=== PATIENT | male | born 1950 | race Caucasian/White ===

== ENCOUNTER 2021-03-19 12:41 | Inpatient (IN) | payer MEDICARE ==
[~2021-03-19 12:41] MED LIST: Iopamidol-370 76% 500 ML 1 ML ONE
[2021-03-19 13:01] LABS: #Eosinphils 0.1 thou/uL (0.0-0.7); #Lymphocytes 2.6 thou/uL (1.20-3.40); #Monocytes 1.3 thou/uL (0.11-0.59); #Neutrophils 13.8 thou/uL (1.40-6.50); %Basophils 0.1 % (0.0-1.0); %Eosinophils 0.5 % (0.0-10.0); %Lymphocytes 14.4 % (21.0-51.0); %Monocytes 7.3 % (0.0-10.0); %Neutrophils 77.7 % (42.0-75.0); Hemoglobin 16.8 g/dL (14.0-18.0); Mean Corpuscular HGB CONC 34.3 g/dL (32.0-36.0); Mean Corpuscular Hemoglobin 30.4 pg (27.0-31.0); Mean Corpuscular Volume 88.5 fL (78.0-98.0); Mean Platelet Volume 7.5 fL (7.4-10.4); Platelet Count 270 thou/uL (130-400); RBC Distribution Width 12.2 % (11.5-14.5); Red Blood Cell (RBC) Count 5.52 mill/uL (4.70-6.10); White Blood Cell (WBC) Count 17.8 thou/uL (4.8-10.8)
[2021-03-19 13:12] LABS: PTT 22.6 sec (22.9-36.1)
[2021-03-19 13:17] LABS: ALT (SGPT) 57 U/L (8-55); AST (SGOT) 21 U/L (5-34); Alkaline Phosphatase 104 U/L (40-110); Anion Gap 14 mmol/L (10-20); BUN (Urea Nitrogen) 32 mg/dL (8.4-25.7); Bilirubin, Total 0.6 mg/dL (0.2-1.2); CK (CPK) 38 U/L (30-200); Calc. Creatinine Clearance 0 mL/min (70-130); Calcium 9.3 mg/dL (7.8-10.44); Carbon Dioxide 23 mmol/L (23-31); Chloride 104 mmol/L (98-107); Globulin 3.5 g/dL (2.4-3.5); Glucose 106 mg/dL (80-115); Protein, Total 7.5 g/dL (5.8-8.1); Sodium 137 mmol/L (136-145)
[2021-03-19] MEDS ORDERED: Aspirin Chewable 81 MG TAB ONE (15:37)
[2021-03-19] MEDS ORDERED: Senokot S 8.6-50 MG TAB PO PRN (17:16)
[2021-03-19] MEDS ORDERED: Ondansetron PF 4 MG/2 ML Vial IVP PRN (17:16)
[2021-03-19] MEDS ORDERED: Calcium Carbonate 500 MG ChewTAB PO PRN (17:16)
[2021-03-19] MEDS ORDERED: Acetaminophen 325 MG TAB PO PRN (17:16)
[2021-03-19 19:40] VITALS: BMI 31.6
[2021-03-19] MEDS: hydrALAZINE 20 MG/ML VIAL SLOW IVP PRN (20:10)
[2021-03-19] MEDS: Tamsulosin HCl 0.4 MG CAP PO SCH (21:48)
[2021-03-19] MEDS: Atorvastatin Calcium 40 MG TAB PO SCH (21:48)
[2021-03-19 23:16] LABS: SARS-CoV-2 NAA Rapid Test Not Detected (NotDetected)
[2021-03-20] MEDS ORDERED: hydrOXYzine 10 MG TAB PO SCH (03:00)
[2021-03-20 06:24] LABS: Hemoglobin 15.7 g/dL (14.0-18.0); Lymphocytes 32 % (21-51); MDiff Complete? YES; Mean Corpuscular HGB CONC 34.8 g/dL (32.0-36.0); Mean Corpuscular Hemoglobin 30.7 pg (27.0-31.0); Mean Corpuscular Volume 88.3 fL (78.0-98.0); Mean Platelet Volume 7.9 fL (7.4-10.4); Monocytes 13 % (0-10); Neutrophil 54 % (42-75); Platelet Count 214 thou/uL (130-400); Platelet Morphology Comment Appears Adequate; RBC Distribution Width 12.3 % (11.5-14.5); RBC Morphology Normal; Reactive Lymphocytes 1 % (0-10); White Blood Cell (WBC) Count 11.6 thou/uL (4.8-10.8)
[2021-03-20 06:26] LABS: ALT (SGPT) 62 U/L (8-55); AST (SGOT) 24 U/L (5-34); Albumin 3.7 g/dL (3.4-4.8); Alkaline Phosphatase 93 U/L (40-110); Anion Gap 12 mmol/L (10-20); BUN (Urea Nitrogen) 27 mg/dL (8.4-25.7); Bilirubin, Total 0.6 mg/dL (0.2-1.2); Calc. Creatinine Clearance 96 mL/min (70-130); Calcium 8.8 mg/dL (7.8-10.44); Carbon Dioxide 25 mmol/L (23-31); Cardiac Risk 2.7 (Less than 4.5); Chloride 105 mmol/L (98-107); Cholesterol 146 mg/dl (< 200 Desired); Globulin 2.5 g/dL (2.4-3.5); Glucose 105 mg/dL (80-115); HDL Cholesterol 54 mg/dL (>60 Neg Risk); LDL Cholesterol, Calculated 70 mg/dL; Potassium 3.9 mmol/L (3.5-5.1); Protein, Total 6.2 g/dL (5.8-8.1); Sodium 138 mmol/L (136-145); Triglycerides 112 mg/dL (Less than 150)
[2021-03-20] MEDS ORDERED: predniSONE 20 MG TAB PO SCH (08:00)
[2021-03-20] MEDS ORDERED: Non-Formulary Item 1 EACH (Azelastine Hcl [Azelastine Hcl 0.15% Nasal Spray] 205.5 MCG/0. NASAL PRN (08:19)
[2021-03-20] MEDS ORDERED: Azelastine 137 MCG/Spray 30 ML NS PRN (08:28)
[2021-03-20] MEDS: hydrALAZINE 20 MG/ML VIAL SLOW IVP PRN (08:50)
[2021-03-20] MEDS: Aspirin 81 mg Enteric Coated Tablet PO SCH (08:50)
[2021-03-20] MEDS: Finasteride 5 MG TAB PO SCH (08:51)
[2021-03-20] MEDS: Fluticasone Propionate Nasal Spray 16 gm Bottle NASAL SCH (08:52)
[2021-03-20] MEDS ORDERED: Fluticasone Propionate Nasal Spray 16 gm Bottle NASAL SCH (09:00)
[2021-03-20] MEDS ORDERED: Labetalol HCl 100 MG/20 ML VIAL SLOW IVP PRN (12:13)
[2021-03-20] MEDS ORDERED: NIFEdipine XL 30 MG TAB PO SCH (17:15)
[2021-03-20] MEDS ORDERED: Melatonin 3 MG TAB PO PRN (21:09)
[2021-03-20] MEDS: Tamsulosin HCl 0.4 MG CAP PO SCH (21:26)
[2021-03-20] MEDS: Atorvastatin Calcium 40 MG TAB PO SCH (21:26)
[2021-03-20] MEDS ORDERED: hydrOXYzine 10 MG TAB PO PRN (22:52)
[2021-03-21] MEDS ORDERED: Mag-Al 1200 mg/1200 mg/30 ML UDCUP PO SCH (01:12)
[2021-03-21 05:55] LABS: #Basophils 0.1 thou/uL (0.0-0.2); #Eosinphils 0.4 thou/uL (0.0-0.7); #Lymphocytes 2.5 thou/uL (1.20-3.40); #Monocytes 1.1 thou/uL (0.11-0.59); #Neutrophils 9.1 thou/uL (1.40-6.50); %Basophils 0.5 % (0.0-1.0); %Eosinophils 2.7 % (0.0-10.0); %Monocytes 8.6 % (0.0-10.0); %Neutrophils 69.2 % (42.0-75.0); Hemoglobin 15.6 g/dL (14.0-18.0); Mean Corpuscular HGB CONC 33.8 g/dL (32.0-36.0); Mean Corpuscular Hemoglobin 30.2 pg (27.0-31.0); Mean Corpuscular Volume 89.3 fL (78.0-98.0); Mean Platelet Volume 7.9 fL (7.4-10.4); Platelet Count 227 thou/uL (130-400); RBC Distribution Width 12.5 % (11.5-14.5); Red Blood Cell (RBC) Count 5.19 mill/uL (4.70-6.10); White Blood Cell (WBC) Count 13.2 thou/uL (4.8-10.8)
[2021-03-21 06:15] LABS: Anion Gap 12 mmol/L (10-20); BUN (Urea Nitrogen) 22 mg/dL (8.4-25.7); Calc. Creatinine Clearance 94 mL/min (70-130); Calcium 9.7 mg/dL (7.8-10.44); Carbon Dioxide 24 mmol/L (23-31); Chloride 104 mmol/L (98-107); Glucose 109 mg/dL (80-115); Potassium 4.1 mmol/L (3.5-5.1); Sodium 136 mmol/L (136-145)
[2021-03-21] MEDS ORDERED: predniSONE 20 MG TAB PO SCH (08:00)
[2021-03-21] MEDS: NIFEdipine XL 30 MG TAB PO SCH (09:00)
[2021-03-21] MEDS: Aspirin 81 mg Enteric Coated Tablet PO SCH (09:00)
[2021-03-21] MEDS: Fluticasone Propionate Nasal Spray 16 gm Bottle NASAL SCH (09:01)
[2021-03-21] MEDS: Finasteride 5 MG TAB PO SCH (09:01)
[2021-03-21] MEDS: Atorvastatin Calcium 40 MG TAB PO SCH (20:36)
[2021-03-21] MEDS: Tamsulosin HCl 0.4 MG CAP PO SCH (20:36)
[2021-03-21] MEDS ORDERED: Zolpidem Tartrate 5 MG TAB PO SCH (21:00)
[2021-03-22 05:46] LABS: #Eosinphils 0.2 thou/uL (0.0-0.7); #Lymphocytes 2.6 thou/uL (1.20-3.40); #Monocytes 1.2 thou/uL (0.11-0.59); #Neutrophils 9.6 thou/uL (1.40-6.50); %Basophils 0.4 % (0.0-1.0); %Eosinophils 1.2 % (0.0-10.0); %Lymphocytes 19.2 % (21.0-51.0); %Monocytes 9.1 % (0.0-10.0); %Neutrophils 70.2 % (42.0-75.0); Hemoglobin 15.5 g/dL (14.0-18.0); Mean Corpuscular HGB CONC 33.1 g/dL (32.0-36.0); Mean Corpuscular Hemoglobin 29.5 pg (27.0-31.0); Mean Platelet Volume 7.6 fL (7.4-10.4); Platelet Count 221 thou/uL (130-400); RBC Distribution Width 12.3 % (11.5-14.5); Red Blood Cell (RBC) Count 5.26 mill/uL (4.70-6.10); White Blood Cell (WBC) Count 13.6 thou/uL (4.8-10.8)
[2021-03-22 06:06] LABS: Anion Gap 12 mmol/L (10-20); BUN (Urea Nitrogen) 21 mg/dL (8.4-25.7); Calc. Creatinine Clearance 101 mL/min (70-130); Calcium 8.6 mg/dL (7.8-10.44); Carbon Dioxide 25 mmol/L (23-31); Chloride 104 mmol/L (98-107); Glucose 109 mg/dL (80-115); Sodium 137 mmol/L (136-145)
[2021-03-22] MEDS ORDERED: predniSONE 5 MG TAB PO SCH (08:00)
[2021-03-22] MEDS ORDERED: FLU VACC QS2021-22(65YR UP)/PF 240 MCG/0.7 ML SYRINGE IM ONE (09:00)
[2021-03-22] MEDS: NIFEdipine XL 30 MG TAB PO SCH (09:36)
[2021-03-22] MEDS: Fluticasone Propionate Nasal Spray 16 gm Bottle NASAL SCH (09:37)
[2021-03-22] MEDS: Finasteride 5 MG TAB PO SCH (09:39)
[2021-03-22] MEDS: Aspirin 81 mg Enteric Coated Tablet PO SCH (09:39)
[2021-03-22 11:45] VITALS: TEMP 98
[2021-03-22 13:26] VITALS: BP 153/82
== END 2021-03-22 15:20 | disposition home or self-care (01) | DRG 65 ==
LOC: ERS 12:41 → ERHOLD 15:52 → INTOOBSV 15:52 → 3SE 19:17 → OBSVTOIN 03-20 16:54
PROVIDERS: ADMIT Internal Medicine; ATTEND Internal Medicine
DX: I63.9 Cerebral infarction, unspecified (principal); G81.91 Hemiplegia, unspecified affecting right dominant side; D72.829 Elevated white blood cell count, unspecified; T38.0X5A Adverse effect of glucocorticoids and synthetic analogues, initial encounter; J30.9 Allergic rhinitis, unspecified; I10 Essential (primary) hypertension; Z20.822 Contact with and (suspected) exposure to COVID-19; N40.0 Benign prostatic hyperplasia without lower urinary tract symptoms; Z98.890 Other specified postprocedural states; Z87.891 Personal history of nicotine dependence
CPT/HCPCS: 36415; 70450; 70496; 70498; 71045; 80048; 80053; 80061; 82550; 82607; 82746; 84443; 84484; 85007; 85025; 85027; 85610; 85730; 93005; 93010; 93306; 96374; G0378; J0360; J7512; Q9967; U0002